=== PATIENT | female | born 1960 | race Caucasian/White ===

== ENCOUNTER 2023-11-30 10:32 | Outpatient (CLI) | payer OTHER, SELFPAY ==
--- NOTE | 2023-11-30 10:38 | MM_ITS ---
WS: [id number] BILATERAL SCREENING DIGITAL BREAST MAMMOGRAPHY WITH KRISTEN DISPLACEMENT VIEWS. CAD PERFORMED. HISTORY: SCREENING COMPARISON: 08/23/2022, 08/13/2021 Bilateral craniocaudal and mediolateral oblique views are performed with tomosynthesis and SM. Kristen displacement views in CC and MLO projection also performed. Breasts composition: There are scattered areas of fibroglandular density. Implants are intact. There are a few stable nodules within each breast. These are probably lymph node s. No distortion. No suspicious grouping of calcifications. MM/[place] [id number] IMPRESSION: BI-RADS: 2-Benign FOLLOW-UP: 1 Year Follow-up
== END 2023-11-30 10:33 | disposition home or self-care (01) ==
LOC: RAD 10:32
PROVIDERS: Visit Provider Nurse Practitioner
DX: Z12.31 Encounter for screening mammogram for malignant neoplasm of breast (principal); R92.323 Mammographic fibroglandular density, bilateral breasts
CPT/HCPCS: 77063; 77067

== ENCOUNTER 2023-12-07 20:00 | Outpatient (CLI) | payer OTHER, SELFPAY | END 2023-12-07 20:01 | disposition home or self-care (01) | LOC: SLEEP 12-08 04:18 | PROVIDERS: Visit Provider Nurse Practitioner | DX: G47.33 Obstructive sleep apnea (adult) (pediatric) (principal); G47.36 Sleep related hypoventilation in conditions classified elsewhere | CPT/HCPCS: 95810 ==

== ENCOUNTER 2024-05-06 20:00 | Outpatient (CLI) | payer OTHER, SELFPAY | END 2024-05-06 20:01 | disposition home or self-care (01) | LOC: SLEEP 05-07 00:04 | PROVIDERS: Visit Provider Nurse Practitioner | DX: G47.33 Obstructive sleep apnea (adult) (pediatric) (principal); Z99.89 Dependence on other enabling machines and devices | CPT/HCPCS: 95811 ==

== ENCOUNTER → 2024-11-28 11:09 | Outpatient (BNVA) | payer OTHER, SELFPAY | PROVIDERS: Referring Provider Nurse Practitioner; Visit Provider Surgery | DX: Z12.11 Encounter for screening for malignant neoplasm of colon (principal) | CPT/HCPCS: 99203 ==

== ENCOUNTER → 2024-12-02 08:49 | Outpatient (BNVA) | payer OTHER, SELFPAY | PROVIDERS: PCP Nurse Practitioner; Visit Provider Physician Assistant | DX: M65.332 Trigger finger, left middle finger (principal) | CPT/HCPCS: 73130; 99203 ==

== ENCOUNTER 2024-12-13 08:14 | Day surgery (SDC) | payer OTHER, SELFPAY ==
[2024-12-13] VITALS (8 sets, daily range): BP systolic 144–162; BP diastolic 71–88; PULSE 51–66; RESP 16–18; TEMP 36.2–36.4; O2SAT 91–96; BMI 36.6
[2024-12-13] MEDS: scopolamine 1 mg PATCH 1 PATCH TRANSDERMA (08:53)
[2024-12-13] MEDS: ketorolac 30 mg/mL INJ IVP (08:53)
[2024-12-13] MEDS: sodium chloride 0.9% 1,000 ML 30 ML IV (08:55)
[2024-12-13] MEDS: acetaminophen 1,000 MG/100 ML PIGGYBACK 400 MG IV (08:56)
--- NOTE | 2024-12-13 09:04 | W.PM.OPSUD ---
Surgery/Procedure H&P Update DATE OF PROCEDURE: December 13, 2024 DATE H&P PERFORMED: 12/02/24 H&P UPDATE INFORMATION: I have reviewed H&P completed within last 30 days, I have examined patient prior to procedure and No changes to prior documentation PREOP DIAGNOSIS: Left middle finger trigger PRIMARY INDICATION FOR PROCEDURE: Left middle finger trigger PLANNED PROCEDURE: Operation Date: 12/13/24 10:10 Proposed Procedures p left middle finger trigger release(Left) - Jesus Orantes DO
--- NOTE | 2024-12-13 09:30 | ANES.PREANE2 ---
Pre-Anesthetic Assessment Height/Weight: Height 5 ft 4 in Weight 213 lb Temp Pulse Resp BP Pulse Ox O2 Del Method 97.5 F L 66 18 151/88 94 Room Air 12/13/24 08:35 12/13/24 08:35 12/13/24 08:35 12/13/24 08:53 12/13/24 08:35 12/13/24 08:35 Preop Diagnosis: Left middle finger trigger Operation Date: 12/13/24 10:10 Proposed Procedures p left middle finger trigger release(Left) - Jesus Orantes, DO Was Beta Yarelis taken within 24 hours: Yes Was Clonidine taken within 24 hours: Yes Last intake: Intake Last Liquid Date 12/12/24 Last Liquid Time 20:08 Last Solid Date 12/12/24 Last Solid Time 20:08 Social No alcohol and No tobacco Exam alert, oriented x 3, clear to auscultation bilaterally and regular rate & rhythm Airway Submandibular: within normal limits Cervical ROM: within normal limits Mallampati: Class III Dentition: full Anesthetic Plan ASA status: 3 Anesthesia: MAC Other: No prior issues with anesthesia NPO since yesterday evening History of hypertension on chlorthalidone, losartan and metoprolol. Preop BP 151/88 GERD, controlled with omeprazole METs greater than 4 Plan for MAC anesthesia with local via surgeon Medications/Allergies Home Medications ?Medication ?Instructions ?Recorded ?Confirmed ?Last Taken ?Type albuterol sulfate 90 mcg/actuation 1 inh inhalation QID 11/28/24 12/13/24 Unknown History aerosol inhaler (Ventolin HFA) chlorthalidone 25 mg tablet 25 mg PO DAILY 11/28/24 12/13/24 12/12/24 History fluticasone propionate 2 applic inhalation DAILY PRN 11/28/24 12/13/24 Unknown History Allergy Symptoms losartan 100 mg tablet 100 mg PO DAILY 11/28/24 12/13/24 12/12/24 History metoprolol succinate 100 mg 100 mg PO DAILY 11/28/24 12/13/24 12/12/24 History tablet,extended release 24 hr omeprazole 40 mg capsule,delayed 40 mg PO DAILY 11/28/24 12/13/24 12/12/24 History release ondansetron 8 mg disintegrating 8 mg PO Q8H PRN nausea and 11/28/24 12/13/24 Unknown Rx tablet vomiting #3 tabs paroxetine HCl 12.5 mg 12.5 mg PO DAILY 11/28/24 12/13/24 12/12/24 History tablet,extended release 24 hr tramadol 50 mg tablet 50 mg PO Q6H PRN pain 5 days #20 12/13/24 Unknown Rx tabs Allergies Allergy/AdvReac Type Severity Reaction Status Date / Time Penicillins Allergy Severe ALGY-Anaphy Verified 12/13/24 08:31 laxis Sulfa (Sulfonamide Allergy Severe ALGY-Anaphy Verified 12/13/24 08:31 Antibiotics) laxis Current Medications Generic Name Dose Route Start Last Admin Trade Name Freq PRN Reason Stop Dose Admin Sodium Chloride 1,000 mls @ 30 mls/hr 12/13/24 08:30 12/13/24 08:55 Sodium Chloride 0.9% IV 12/14/24 08:29 30 mls/hr .Q24H LATOSHA Administration PFSH Anesthesia Social History Smoking and tobacco/nicotine status: never used tobacco/nicotine
[2024-12-13] MEDS: clindamycin 900 MG/50 ML PREMIX 100 MG IV (11:05)
[2024-12-13] MEDS: lidocaine 1% 10 ML INJ 5 ML INJECTION (11:11)
[2024-12-13] MEDS: ROPivacaine 0.5% SDV 30 mL 30 MG INJECTION (11:11)
--- NOTE | 2024-12-13 11:27 | P.BOP_ITS ---
Date of Procedure: 12/13/2024 Surgeon: Jesus Orantes DO Speech Communication Professor(s): None Procedure(s) performed: Left middle finger trigger release Findings of the procedure(s): Patient underwent procedure as planned without issues or complications. Estimated blood loss: 1 mL Specimen(s) removed: None Post-operative diagnosis: Left middle finger trigger
--- NOTE | 2024-12-13 11:27 | PM.OP ---
Operative Report Date of procedure: December 13, 2024 Surgeon: Jesus Orantes DO Procedure: Preoperative diagnosis: Left middle finger trigger Post-op diagnosis: Same Procedure done: Left?middle finger?trigger?release Surgeon: Jesus Orantes DO Estimated blood loss: 1cc Tourniquet time 5mins Complications: None Condition: stable Disposition: same day Brief History: Patient's been seen and worked up in the outpatient setting and findings consistent with preoperative diagnosis of Left?middle finger?trigger.? Patient has failed conservative treatment.? Continues to have mechanical locking and catching.? Severe pain as well.? We talked about treatment options nonoperative versus operative intervention.? ?Patient understands the risk benefits complication alternatives of surgical nonsurgical treatment options.? Understanding his risks with surgery patient elects proceed with surgical intervention for left middle finger trigger release. consent obtained in the preoperative holding area.? Here today to proceed with surgical intervention.? All questions answered. Procedure: Patient was seen and evaluated in the preoperative holding area.? Consent was reviewed and signed with patient.? Seen evaluated by Anesthesia Department.? Once cleared for surgery was brought back to the operative suite.? Placed in supine position on the OR table all bony prominences well-padded patient properly secured to the bed.? Patient's Left arm was then placed to the armboard.? A nonsterile tourniquet applied to the Left upper arm.? Patient's Left upper extremity was then prepped and draped in standard orthopedic fashion.? Final timeout performed.? Patient received appropriate preoperative antibiotics. Esmarch tourniquet was used exsanguinate the Left upper extremity tourniquet insufflated to 250 mmHg. Under sterile aseptic technique local digital block was performed to the Left?middle finger.? Once appropriately anesthetized a standard oblique incision was made centering over the A1 whitney following patient's flexor crease.? Sharp scalpel incision was made only through skin and then switched to Littler dissection scissors and spread longitudinally directly over the flexor tendon sheath.? I then mobilized both radially and ulnarly and Kasdan retractors were used and placed by my assistant teaching professor to protect neurovascular bundle.? Next I visualized the A1 whitney and this was incised with a scalpel.? I then switched to dissection scissors and released the A1 whitney both proximally as well as distally to its entirety.? Significant tendon sheath fluid was noted consistent with inflammation.? Mild fraying of the flexor tendons noted but no tear.? At this point I utilized a rag nail and pulled the tendons FDS and FDP out of the incision and no?triggering was noted.? I then had anesthesia wake up the patient and patient was able to actively flex and extend with no?triggering.? This point thorough irrigation was performed.? Tourniquet deflated hemostasis satisfactory with bipolar.? I then subsequently closed the incision with interrupted nylon suture.? Xeroform 4 x 4's, Kerlix and an Miller wrap was applied for a bulky soft dressing.? Patient was then subsequently awakened from anesthesia and taken to PACU in stable condition tolerated procedure without issues. Disposition: Patient taken back in stable condition recovering well.? Patient will receive appropriate discharge instruction as well as pain medication postoperatively.? Patient to follow-up with me in the office in 2 weeks.? Patient understands that any questions or concerns and contact the office.? All questions answered.
--- NOTE | 2024-12-13 12:30 | ANE.PACU2 ---
Inpatient post-anesthesia follow up: Airway intact: Yes Vital signs: Temperature 97.4 F Pulse Rate 60 Respiratory Rate 16 Blood Pressure 153/85 Pulse Oximetry 94 Oxygen Delivery Me thod Room Air Oxygen Flow Rate Fraction of Inspir ed Oxygen Hydration adequate: Yes Nausea and vomiting: No Pain level: 1 Mental status: Baseline
== END 2024-12-13 12:30 | disposition home or self-care (01) ==
PROVIDERS: PCP Nurse Practitioner; Visit Provider Student in an Organized Health Care Education/Training Program
PROC: (CPT 26055; principal; 2024-12-13 10:00)
DX: M65.332 Trigger finger, left middle finger (principal); I10 Essential (primary) hypertension; K21.9 Gastro-esophageal reflux disease without esophagitis
CPT/HCPCS: 26055; J0131; J1885; J2704; J2795; J3010; J3490; J7030; J9999

== ENCOUNTER → 2024-12-27 11:17 | Outpatient (BNVA) | payer OTHER, SELFPAY | PROVIDERS: PCP Nurse Practitioner; Visit Provider Physician Assistant | DX: Z98.890 Other specified postprocedural states (principal) | CPT/HCPCS: 99024 ==

== ENCOUNTER 2025-01-08 08:39 | Day surgery (SDC) | payer OTHER, SELFPAY ==
[2025-01-08 08:57] VITALS: BP 144/92; PULSE 60; RESP 18; TEMP 36.3; O2SAT 94
[2025-01-08] MEDS: sodium chloride 0.9% 1,000 ML 15 ML IV (09:15)
[2025-01-08 09:19] LABS: Glucose Point of Care 116 mg/dL (70-110)
--- NOTE | 2025-01-08 09:20 | W.PM.OPSFHP ---
Same Day Surgery H&P Indication for Procedure/HPI DATE OF PROCEDURE: January 08, 2025 CHIEF COMPLAINT/INDICATIONFOR SURGICAL PROCEDURE: need for screening colonoscopy PREOP DIAGNOSIS: need for screening colonoscopy PLANNED PROCEDURE: Operation Date: 01/08/25 10:20 Proposed Procedures p Colonoscopy 35210 G0121 Z12.11(Not Applicable) - Damien Galindo MD Medications/Allergies* Home Medications ?Medication ?Instructions ?Recorded ?Confirmed ?Type albuterol sulfate 90 mcg/actuation 1 inh inhalation QID 11/28/24 01/06/25 History aerosol inhaler (Ventolin HFA) chlorthalidone 25 mg tablet 25 mg PO DAILY 11/28/24 01/06/25 History fluticasone propionate 2 applic inhalation DAILY PRN 11/28/24 01/06/25 History Allergy Symptoms losartan 100 mg tablet 100 mg PO DAILY 11/28/24 01/06/25 History metoprolol succinate 100 mg 100 mg PO DAILY 11/28/24 01/06/25 History tablet,extended release 24 hr omeprazole 40 mg capsule,delayed 40 mg PO DAILY 11/28/24 01/06/25 History release paroxetine HCl 12.5 mg 12.5 mg PO DAILY 11/28/24 01/06/25 History tablet,extended release 24 hr Allergies/Adverse Reactions Allergy/AdvReac Type Severity Reaction Status Date / Time Penicillins Allergy Severe ALGY-Anaphy Verified 12/27/24 11:23 laxis Sulfa (Sulfonamide Allergy Severe ALGY-Anaphy Verified 12/13/24 08:31 Antibiotics) laxis Current Medications: Generic Name Dose Route Start Last Admin Trade Name Freq PRN Reason Stop Dose Admin Sodium Chloride 1,000 mls @ 15 mls/hr 01/08/25 08:47 01/08/25 09:15 Sodium Chloride 0.9% IV 01/09/25 08:46 15 mls/hr .Q24H PRN Administration COLONOSCOPY FLUIDS Pertinent History/Comorbid Conditions* Social History Smoking and tobacco/nicotine status: never used tobacco/nicotine Pertinent Exam Findings alert, oriented x 3, clear to auscultation bilaterally and regular rate & rhythm Recommendations Surgery/Procedure today Coding Level of Care Code Acute Code for Chg Fwd
--- NOTE | 2025-01-08 09:41 | ANES.PREANE2 ---
Pre-Anesthetic Assessment Height/Weight: Height 1.63 m Weight 95.254 kg Temp Pulse Resp BP Pulse Ox O2 Del Method 97.3 F L 60 18 144/92 94 Room Air 01/08/25 08:57 01/08/25 08:57 01/08/25 08:57 01/08/25 08:57 01/08/25 08:57 01/08/25 08:57 Preop Diagnosis: need for screening colonoscopy Operation Date: 01/08/25 10:20 Proposed Procedures p Colonoscopy 73673 G0121 Z12.11(Not Applicable) - Damien Galindo MD Familial anesthetic complications: none Was Beta Yarelis taken within 24 hours: Yes Was Clonidine taken within 24 hours: N/A Last intake: Intake Last Liquid Date 01/07/25 Last Liquid Time 21:30 Last Solid Date 01/06/25 Last Solid Time 18:00 Social No alcohol and No tobacco Exam alert, oriented x 3, clear to auscultation bilaterally and regular rate & rhythm Airway Submandibular: within normal limits Cervical ROM: within normal limits Mallampati: Class II Dentition: full History/ROS No significant history except as noted and No significant complaints Pulmonary Asthma and Exertional Dyspnea CV/HEM Hypertension None reported Hepatic None reported GI Gastroesophageal Reflux Disease Metabolic None reported Musc/skel None reported Neuropsych Anxiety Anesthetic Plan ASA status: 3 Anesthesia: MAC Risk of > 500 ml blood loss (7ml/kg in children): No Medications/Allergies Home Medications ?Medication ?Instructions ?Recorded ?Confirmed ?Last Taken ?Type albuterol sulfate 90 mcg/actuation 1 inh inhalation QID 11/28/24 01/06/25 01/06/25 History aerosol inhaler (Ventolin HFA) chlorthalidone 25 mg tablet 25 mg PO DAILY 11/28/24 01/06/25 01/06/25 History fluticasone propionate 2 applic inhalation DAILY PRN 11/28/24 01/06/25 Unknown History Allergy Symptoms losartan 100 mg tablet 100 mg PO DAILY 11/28/24 01/06/25 01/06/25 History metoprolol succinate 100 mg 100 mg PO DAILY 11/28/24 01/06/25 01/08/25 History tablet,extended release 24 hr omeprazole 40 mg capsule,delayed 40 mg PO DAILY 11/28/24 01/06/25 01/06/25 History release ondansetron 8 mg disintegrating 8 mg PO Q8H PRN nausea and 11/28/24 01/06/25 Unknown Rx tablet vomiting #3 tabs paroxetine HCl 12.5 mg 12.5 mg PO DAILY 11/28/24 01/06/25 01/06/25 History tablet,extended release 24 hr Allergies Allergy/AdvReac Type Severity Reaction Status Date / Time Penicillins Allergy Severe ALGY-Anaphy Verified 12/27/24 11:23 laxis Sulfa (Sulfonamide Allergy Severe ALGY-Anaphy Verified 12/13/24 08:31 Antibiotics) laxis Current Medications Generic Name Dose Route Start Last Admin Trade Name Freq PRN Reason Stop Dose Admin Sodium Chloride 1,000 mls @ 15 mls/hr 01/08/25 08:47 01/08/25 09:15 Sodium Chloride 0.9% IV 01/09/25 08:46 15 mls/hr .Q24H PRN Administration COLONOSCOPY FLUIDS PFSH Anesthesia Social History Smoking and tobacco/nicotine status: never used tobacco/nicotine
[2025-01-08 10:09] VITALS: BP 106/64; PULSE 61; RESP 18; TEMP 36.2; O2SAT 93
[2025-01-08 10:20] VITALS: BP 115/71; PULSE 64; RESP 18; O2SAT 93
[2025-01-08 10:30] VITALS: BP 125/77; PULSE 53; RESP 18; O2SAT 94
--- NOTE | 2025-01-08 10:50 | ANE.PACU2 ---
Inpatient post-anesthesia follow up: Airway intact: Yes Vital signs: Temperature 97.2 F Pulse Rate 53 Respiratory Rate 18 Blood Pressure 125/77 Pulse Oximetry 94 Oxygen Delivery Me thod Room Air Oxygen Flow Rate Fraction of Inspir ed Oxygen Hydration adequate: Yes Nausea and vomiting: No Pain level: 1 Mental status: Baseline
== END 2025-01-08 10:50 | disposition home or self-care (01) ==
PROVIDERS: PCP Nurse Practitioner; Visit Provider Surgery
PROC: 0DJD8ZZ Inspection of Lower Intestinal Tract, Via Natural or Artificial Opening Endoscopic (ICD-10-PCS; CPT 45378; principal; 2025-01-08 10:20)
DX: Z12.11 Encounter for screening for malignant neoplasm of colon (principal); D12.3 Benign neoplasm of transverse colon; K63.5 Polyp of colon; K21.9 Gastro-esophageal reflux disease without esophagitis; I10 Essential (primary) hypertension; Z79.899 Other long term (current) drug therapy; Z88.0 Allergy status to penicillin; Z88.2 Allergy status to sulfonamides
CPT/HCPCS: 36416; 45380; 82962; 88305; J2704; J7030

== ENCOUNTER 2025-01-13 09:28 | Outpatient (CLI) | payer OTHER, SELFPAY ==
--- NOTE | 2025-01-13 09:35 | MM_ITS ---
WS: [id number] BILATERAL 3D TOMOSYNTHESIS DIGITAL SCREENING MAMMOGRAPHY WITH CAD CLINICAL INFORMATION: SCREENING HISTORY: Screening mammogram. No current complaints. COMPARISON: 2023 TECHNIQUE: Bilateral CC and MLO views. FINDINGS: Stable bilateral breast implants. Scattered fibroglandular densities bilaterally. No suspicious focal mass, asymmetry, calcifications, or architectural distortion. No evidence of malignancy. MM/MM [facility] tomosynthesis [id number] IMPRESSION: DENSITY: There are scattered areas of fibroglandular density. BI-RADS: 2 - Benign. FOLLOW UP: 1 Year Follow-up Recommend return to annual screening mammography.
== END 2025-01-13 09:29 | disposition home or self-care (01) ==
LOC: RAD 09:29
PROVIDERS: PCP Nurse Practitioner; Visit Provider Nurse Practitioner
DX: Z12.31 Encounter for screening mammogram for malignant neoplasm of breast (principal); R92.323 Mammographic fibroglandular density, bilateral breasts
CPT/HCPCS: 77063; 77067

== ENCOUNTER → 2025-01-21 13:15 | Outpatient (BNVA) | payer OTHER, SELFPAY | PROVIDERS: PCP Nurse Practitioner; Visit Provider Surgery | DX: Z09 Encounter for follow-up examination after completed treatment for conditions other than malignant neoplasm (principal) | CPT/HCPCS: 99213 ==

== ENCOUNTER → 2025-07-02 10:37 | Outpatient (BNVA) | payer OTHER, SELFPAY | PROVIDERS: PCP Nurse Practitioner; Visit Provider Student in an Organized Health Care Education/Training Program | DX: M65.331 Trigger finger, right middle finger (principal); M65.341 Trigger finger, right ring finger | CPT/HCPCS: 73130; 99214 ==

== ENCOUNTER 2025-07-07 07:18 | Outpatient (CLI) | payer OTHER, SELFPAY ==
--- NOTE | 2025-07-07 07:22 | MR_ITS ---
WS: [id number] MRI/MRCP OF THE ABDOMEN WITHOUT GADOLINIUM ENHANCEMENT TECHNIQUE: Coronal T2 Fase BH, Axial T2 Fase BH, Axial T2 FS BH, Zxial 3D Arzate BH, Axial DWI BH, 2D MRCP Radial BH, 3D MRCP (Resp), and Axial 3D Dyn BH Post sequences. CLINICAL INFORMATION: R adrenal gland nodule COMPARISON: No comparison images available FINDINGS: Some images significantly limited by motion artifact RIGHT adrenal nodule measuring 1.8 cm demonstrates signal dropout on the out of phase imaging compatible with macroscopic fat and adrenal adenoma. Normal LEFT adrenal gland. Diffuse fatty infiltration of the liver. No hydronephrosis in either kidney. Normal caliber upper abdominal aorta. Normal gallbladder. No intrahepatic biliary ductal dilatation. Small to moderate esophageal hernia. Tiny splenic cyst. No other acute findings. MR/MR abdomen wo/w con* [id number] Impression: RIGHT adrenal nodule demonstrates imaging characteristics compatible with adren al adenoma
[2025-07-07] MEDS: gadobenate dimeglumine 20 mL vial 19 ML IV (08:07)
== END 2025-07-07 07:19 | disposition home or self-care (01) ==
LOC: RAD 07:18
PROVIDERS: PCP Nurse Practitioner; Visit Provider Nurse Practitioner
DX: E27.9 Disorder of adrenal gland, unspecified (principal); K76.0 Fatty (change of) liver, not elsewhere classified; K44.9 Diaphragmatic hernia without obstruction or gangrene
CPT/HCPCS: 74183; A9577